=== PATIENT | female | born 1980 | race Caucasian/White ===

== ENCOUNTER 2021-01-11 08:30 | Inpatient (IN) | payer OTHER ==
[~2021-01-11] VITALS: Ht 152.4 cm; Wt 52.2 kg
[2021-01-11] MEDS ORDERED: BUTALB-ACETAMI1 EACH PO (11:08)
[2021-01-11] MEDS ORDERED: MIRALAX17 GM PO (11:08)
[2021-01-11] MEDS ORDERED: CLONAZEPAM0.5 M1 PO (11:09)
[2021-01-16] MEDS ORDERED: CLONAZEPAM0.5 MG (15:54)
[2021-01-16] MEDS ORDERED: MECLIZINE HCL12.5 MG (15:54)
[2021-01-16] MEDS ORDERED: TIZANIDINE HCL4 MG (15:54)
[2021-01-16] MEDS ORDERED: BISACODYL5 MG (15:54)
[2021-01-16] MEDS ORDERED: TOPIRAMATE50 MG (15:54)
[2021-01-16] MEDS ORDERED: AMOX-CLAV 875-1 EAC1 (15:54)
== END 2021-01-16 21:25 | disposition home or self-care (01) | DRG 745 ==
LOC: EDSTATUS 08:30 → ADM 08:30 → O/R 01-16 07:53 → OB/GYN 01-16 08:30
PROVIDERS: ADMIT Obstetrics & Gynecology; ATTEND Obstetrics & Gynecology
PROC: 0UJD8ZZ Inspection of Uterus and Cervix, Via Natural or Artificial Opening Endoscopic (ICD-10-PCS; 2021-01-16)
PROC: 0UB74ZZ Excision of Bilateral Fallopian Tubes, Percutaneous Endoscopic Approach (ICD-10-PCS; principal; 2021-01-16 14:00)
DX: N70.91 Salpingitis, unspecified (principal); Z30.2 Encounter for sterilization; D25.9 Leiomyoma of uterus, unspecified; R10.2 Pelvic and perineal pain